=== PATIENT | female | born 1975 | race Caucasian/White ===

== ENCOUNTER 2017-04-25 13:55 | Emergency (ER) | payer MEDICAID ==
[~2017-04-25] VITALS: Ht 154.9 cm; Wt 58.0 kg
[2017-04-25 13:57] VITALS: BP 126/65
[2017-04-25] MEDS ORDERED: IBUPROFEN 800MG TABLET PO ONE (16:30)
== END 2017-04-25 18:01 | disposition home or self-care (01) ==
LOC: ER 16:24
DX: M54.5 Low back pain (principal); F17.200 Nicotine dependence, unspecified, uncomplicated; F12.10 Cannabis abuse, uncomplicated; V79.9XXA Bus occupant (driver) (passenger) injured in unspecified traffic accident, initial encounter; Y93.89 Activity, other specified; Y92.89 Other specified places as the place of occurrence of the external cause; Y99.8 Other external cause status
CPT/HCPCS: 72100; 99284

== ENCOUNTER 2018-02-13 13:23 | Emergency (ER) | payer MEDICAID ==
[~2018-02-13] VITALS: Ht 154.9 cm; Wt 60.0 kg
[2018-02-13 13:57] VITALS: BP 110/64
== END 2018-02-13 18:56 | disposition left against medical advice (07) ==
LOC: ER 13:23
DX: R06.02 Shortness of breath (principal); Z53.21 Procedure and treatment not carried out due to patient leaving prior to being seen by health care provider

== ENCOUNTER 2020-05-19 23:31 | Emergency (ER) | payer MEDICAID ==
[~2020-05-19] VITALS: Ht 154.9 cm; Wt 76.0 kg
[2020-05-20] MEDS ORDERED: IBUPROFEN 600MG TABLET PO ONE (00:45)
[2020-05-20] MEDS ORDERED: ACET-2708 MT (02:37)
[2020-05-20 04:51] VITALS: BP 115/66
== END 2020-05-20 04:54 | disposition home or self-care (01) ==
LOC: ER 23:31
DX: S92.354A Nondisplaced fracture of fifth metatarsal bone, right foot, initial encounter for closed fracture (principal); F14.10 Cocaine abuse, uncomplicated; F12.10 Cannabis abuse, uncomplicated; Z98.890 Other specified postprocedural states; W07.XXXA Fall from chair, initial encounter; Y93.89 Activity, other specified; Y92.018 Other place in single-family (private) house as the place of occurrence of the external cause
CPT/HCPCS: 29515; 73610; 73630; 99284; Z7610